=== PATIENT | male | born 1990 | race Caucasian/White ===

== ENCOUNTER 2024-11-22 22:11 | Emergency (ER) | payer SELFPAY ==
[~2024-11-22] VITALS: Ht 177.8 cm; Wt 81.0 kg
[2024-11-22 22:15] VITALS: O2SAT 98
[2024-11-22 22:55] LABS: BASOPHILS % 0.5 % (0.0-2.0); HEMATOCRIT. 39.7 % (42.0-52.0); HEMOGLOBIN. 13.2 g/dL (14.0-18.0); LYMPHOCYTES % 40.3 % (20.0-50.0); MEAN CORPUSCULAR HEMOGLOBIN 28.5 pg (28.0-32.0); MEAN CORPUSCULAR HGB CONC 33.1 g/dL (31.0-37.0); MEAN CORPUSCULAR VOLUME 86.1 fL (80.0-94.0); MEAN PLATELET VOLUME 7.8 fl (7.4-10.4); NEUTROPHILS % 51.2 % (40.0-76.0); PLATELET 264 x1000/uL (130-400); RED BLOOD CELL COUNT 4.61 mill/uL (4.7-6.1); RED CELL DISTRIBUTION WIDTH 12.8 % (11.6-14.6); WHITE BLOOD COUNT 5.2 x1000/uL (4.5-11.0)
[2024-11-22] MEDS: SODIUM CHLORIDE 0.9% 1,000 ML IV ONE (22:56)
[2024-11-22 23:08] LABS: CHLORIDE 109 mEq/L (98-107); POTASSIUM 4.3 mEq/L (3.5-5.1); SODIUM 141 mEq/L (136-145)
[2024-11-22 23:09] LABS: CARBON DIOXIDE 24 mEq/L (21-32)
[2024-11-22 23:14] LABS: CREATININE 1.2 mg/dL (0.6-1.3); GLUCOSE 95 mg/dL (70-105); UREA NITROGEN BLOOD 12 mg/dL (9-23)
[2024-11-22 23:15] LABS: ETHANOL BLOOD < 10 mg/dL (<10)
[2024-11-23 04:03] VITALS: BP 117/80; PULSE 57; RESP 11; TEMP 36.7; O2SAT 98
== END 2024-11-23 04:48 | disposition home or self-care (01) ==
LOC: ER 22:11
DX: F12.929 Cannabis use, unspecified with intoxication, unspecified (principal); R53.83 Other fatigue
CPT/HCPCS: 80048; 80320; 85025; 36415; 96360; 99285; J7030; G0480